=== PATIENT | male | born 1980 | race Caucasian/White ===

== ENCOUNTER 2024-09-12 07:43 | Day surgery (SDC) | payer BC ==
[2024-09-12] MEDS ORDERED: Lidocaine 2% 100 MG/5 ML Syringe IVPUSH ONE (07:44)
[2024-09-12] MEDS ORDERED: Lidocaine 2% 5 ML SDV ONE (07:44)
[2024-09-12] MEDS ORDERED: Propofol 200 MG/20 ML SDV IV ONE (07:44)
[2024-09-12] MEDS ORDERED: Ketamine 500 mg/10 ML MDV IV ONE (07:44)
[2024-09-12] MEDS ORDERED: Midazolam 1 MG/ML 2 ML SDV IV ONE (07:44)
[2024-09-12] MEDS ORDERED: Sodium Chloride 0.9% 10 ML Syringe FLUSH PRN (07:45)
[2024-09-12] MEDS: Lactated Ringers 1,000 ML IV SCH (08:29)
[2024-09-12] MEDS: Simethicone Drops 40 MG/0.6 ML 30 ML Bottle ONE (09:26)
[2024-09-12 10:57] VITALS: BP 149/96; PULSE 81
== END 2024-09-12 10:46 | disposition home or self-care (01) ==
LOC: FB.SDS 07:43
PROVIDERS: ATTEND Surgery
DX: K22.70 Barrett's esophagus without dysplasia (principal); K31.7 Polyp of stomach and duodenum; K21.9 Gastro-esophageal reflux disease without esophagitis; E78.5 Hyperlipidemia, unspecified; I10 Essential (primary) hypertension; Z79.899 Other long term (current) drug therapy
CPT/HCPCS: 00731; 88305; A9270-GY; J2003; J2250; J2704; J3490; J7120